=== PATIENT | female | born 1980 | race African-American/Black ===

== ENCOUNTER 2018-02-13 17:59 | Emergency (ER) | payer BC ==
[~2018-02-13] VITALS: Wt 68.0 kg
[~2018-02-13 17:59] MED LIST: ALPRAZOLAM XR0.5 MG PO; ATENOLOL25 MG PO; ATIVAN0.5 MG PO; BIAXIN500 MG PO; BIRTH CONTROL1 EAC1 PO; CIPROFLOXACIN500 MG PO; CLARITIN10 MG PO; FLAGYL500 MG PO; MEDROL DOSEPAK4 MG PO; PAXIL20 MG PO; PROVERA5 MG PO; VICODIN ES 7501 TAB PO; VISTARIL25 M1 PO; VISTARIL50 MG PO
[2018-02-13 18:33] LABS: BASO % 0.2 % (0.0-1.0); EOS % 0.1 % (1.0-4.0); HEMOGLOBIN 12.9 g/dl (12.0-16.0); LYMPH # 1.8 10*3/uL (1.3-4.4); LYMPH % 18.5 % (27.0-41.0); MEAN CORPUSCULAR HGB 30.4 pg (27.0-31.0); MEAN CORPUSCULAR HGB CONC 33.1 g/dl (33.0-37.0); MEAN PLATELET VOLUME 8.7 fl (9.6-12.3); MONO # 0.6 10*3/uL (0.1-1.0); NEUT # 7.1 10*3/uL (2.3-7.9); NEUT % 74.5 % (47.0-73.0); PLATELET COUNT AUTOMATED 355 10*3/uL (130-400); RED BLOOD COUNT 4.24 10*6/uL (4.10-5.10); RED CELL DISTRI WIDTH 13.2 % (0-14.5); WHITE BLOOD COUNT 9.5 10*3/uL (4.8-10.8)
[2018-02-13 18:48] LABS: ALBUMIN 3.4 gm/dl (3.1-4.5); ALKALINE PHOSPHATASE 74 U/L (45-117); BUN 10 mg/dl (7-24); CHLORIDE 104 mmol/L (98-107); CREATININE 1.02 mg/dL (0.55-1.02); LIPASE 335 U/L (73-393); POTASSIUM 3.7 mmol/L (3.5-5.1); SGOT/AST 19 IU/L (3-35); SGPT/ALT 23 U/L (12-78); SODIUM 139 mmol/L (136-145); TOTAL PROTEIN 6.8 gm/dL (6.4-8.2)
[2018-02-13] MEDS ORDERED: DICYCLOMINE HCL10 MG PO (19:27)
[2018-02-13 19:36] VITALS: BP 138/72
== END 2018-02-13 19:45 | disposition home or self-care (01) ==
LOC: ED 17:59
PROVIDERS: Physician Assistant
DX: R10.13 Epigastric pain (principal); R11.2 Nausea with vomiting, unspecified; R19.7 Diarrhea, unspecified; Z88.0 Allergy status to penicillin

== ENCOUNTER 2018-10-02 09:03 | Emergency (ER) | payer OTHER ==
[~2018-10-02] VITALS: Ht 165.1 cm; Wt 68.0 kg
[~2018-10-02 09:03] MED LIST changes: +DICYCLOMINE HCL10 MG PO
[2018-10-02 09:51] LABS: BASO % 0.2 % (0.0-1.0); HEMATOCRIT 42.5 % (37.0-47.0); HEMOGLOBIN 14.2 g/dl (12.0-16.0); LYMPH # 0.5 10*3/uL (1.3-4.4); LYMPH % 9.6 % (27.0-41.0); MEAN CELL VOLUME 91.6 fl (81.0-99.0); MEAN CORPUSCULAR HGB 30.6 pg (27.0-31.0); MEAN CORPUSCULAR HGB CONC 33.4 g/dl (33.0-37.0); MEAN PLATELET VOLUME 8.9 fl (9.6-12.3); MONO # 0.3 10*3/uL (0.1-1.0); MONO % 5.7 % (3.0-9.0); NEUT # 4.6 10*3/uL (2.3-7.9); NEUT % 83.9 % (47.0-73.0); PLATELET COUNT AUTOMATED 269 10*3/uL (130-400); RED BLOOD COUNT 4.64 10*6/uL (4.10-5.10); RED CELL DISTRI WIDTH 13.7 % (0-14.5); WHITE BLOOD COUNT 5.4 10*3/uL (4.8-10.8)
[2018-10-02 10:05] LABS: ALBUMIN 3.3 gm/dl (3.1-4.5); ALKALINE PHOSPHATASE 60 U/L (45-117); BUN 9 mg/dl (7-24); CHLORIDE 107 mmol/L (98-107); LIPASE 116 U/L (73-393); POTASSIUM 3.2 mmol/L (3.5-5.1); SGOT/AST 19 IU/L (3-35); SGPT/ALT 21 U/L (12-78); SODIUM 140 mmol/L (136-145); TOTAL PROTEIN 7.2 gm/dL (6.4-8.2)
[2018-10-02 10:31] LABS: BILIRUBIN 2+ (NEGATIVE); BLOOD TRACE-INTACT (NEGATIVE); CLARITY SL CLOUDY (CLEAR); COLOR YELLOW (YELLOW); GLUCOSE NEGATIVE (NEGATIVE); KETONE TRACE (NEGATIVE); LEUKO ESTERASE NEGATIVE (NEGATIVE); NITRITE NEGATIVE (NEGATIVE); SPECIFIC GRAVITY >= 1.030 (1.005-1.030)
[2018-10-02 10:44] LABS: BACTERIA TRACE
[2018-10-02 11:05] VITALS: BP 110/78
[2018-10-02] MEDS ORDERED: ZOFRAN4 MG PO (11:09)
== END 2018-10-02 11:43 | disposition home or self-care (01) ==
LOC: ED 09:03
PROVIDERS: Physician Assistant
DX: K52.9 Noninfective gastroenteritis and colitis, unspecified (principal); Z90.5 Acquired absence of kidney; Z88.0 Allergy status to penicillin; Z79.899 Other long term (current) drug therapy

== ENCOUNTER → 2018-10-21 | Outpatient (CLI) | payer OTHER ==
[~2018-10-21] MED LIST changes: +DELTASONE20 M1 PO; +ZOFRAN4 MG PO
[2018-10-21 13:32] LABS: ALBUMIN 3.6 gm/dl (3.1-4.5); ALKALINE PHOSPHATASE 66 U/L (45-117); BUN 6 mg/dl (7-24); CHLORIDE 103 mmol/L (98-107); CREATININE 1.07 mg/dL (0.55-1.02); POTASSIUM 3.5 mmol/L (3.5-5.1); SGOT/AST 23 IU/L (3-35); SGPT/ALT 21 U/L (12-78); SODIUM 139 mmol/L (136-145); TOTAL PROTEIN 7.5 gm/dL (6.4-8.2)
== END | disposition home or self-care (01) ==
LOC: LAB 12:10
PROVIDERS: Family Medicine
DX: I10 Essential (primary) hypertension (principal); E55.9 Vitamin D deficiency, unspecified; E87.6 Hypokalemia; R00.2 Palpitations

== ENCOUNTER 2018-12-05 14:05 | Emergency (ER) | payer OTHER ==
[~2018-12-05] VITALS: Ht 165.1 cm; Wt 68.0 kg
[~2018-12-05 14:05] MED LIST changes: -DELTASONE20 M1 PO
[2018-12-05] MEDS ORDERED: DELTASONE20 M1 PO (17:04)
[2018-12-05 17:13] VITALS: BP 128/96
== END 2018-12-05 17:16 | disposition home or self-care (01) ==
LOC: ED 14:05
DX: S39.012A Strain of muscle, fascia and tendon of lower back, initial encounter (principal); M62.830 Muscle spasm of back; Z88.0 Allergy status to penicillin; Z79.899 Other long term (current) drug therapy; Z90.5 Acquired absence of kidney; X50.0XXA Overexertion from strenuous movement or load, initial encounter; Y93.89 Activity, other specified; Y92.89 Other specified places as the place of occurrence of the external cause; Y99.8 Other external cause status

== ENCOUNTER → 2019-09-29 | Outpatient (CLI) | payer OTHER ==
[~2019-09-29] MED LIST changes: +DELTASONE20 M1 PO
[2019-09-29 11:21] LABS: HEMATOCRIT 42.8 % (37.0-47.0); MEAN CELL VOLUME 91.1 fl (81.0-99.0); MEAN CORPUSCULAR HGB 29.8 pg (27.0-31.0); MEAN CORPUSCULAR HGB CONC 32.7 g/dl (33.0-37.0); MEAN PLATELET VOLUME 8.4 fl (9.6-12.3); RED BLOOD COUNT 4.7 10*6/uL (4.10-5.10); RED CELL DISTRI WIDTH 13.9 % (0-14.5); WHITE BLOOD COUNT 4.1 10*3/uL (4.8-10.8)
[2019-09-29 11:39] LABS: ALBUMIN 3.6 gm/dl (3.1-4.5); ALKALINE PHOSPHATASE 69 U/L (45-117); BUN 10 mg/dl (7-24); CHLORIDE 107 mmol/L (98-107); CHOLESTEROL 236 mg/dL (<200); CREATININE 1.11 mg/dL (0.55-1.02); HDL CHOLESTEROL 86 mg/dl (40-60); POTASSIUM 4.4 mmol/L (3.5-5.1); SGOT/AST 30 IU/L (3-35); SGPT/ALT 31 U/L (12-78); SODIUM 139 mmol/L (136-145); TOTAL PROTEIN 7.2 gm/dL (6.4-8.2); TRIGLYCERIDES 629 mg/dl (<150)
[2019-09-29 12:39] LABS: VITAMIN D, 25-HYDROXY 25.6 ng/mL (30-100)
== END | disposition home or self-care (01) ==
LOC: LAB 10:56
PROVIDERS: Nurse Practitioner Family
DX: R53.83 Other fatigue (principal); R00.1 Bradycardia, unspecified; Z79.899 Other long term (current) drug therapy; Z85.528 Personal history of other malignant neoplasm of kidney

== ENCOUNTER → 2019-10-18 | Outpatient (CLI) | payer OTHER | END | disposition home or self-care (01) | LOC: CARD 06:50 | DX: Q21.1 Atrial septal defect (principal); R00.2 Palpitations; I77.819 Aortic ectasia, unspecified site ==

== ENCOUNTER 2020-03-17 17:11 | Inpatient (IN) | payer OTHER ==
[~2020-03-17] VITALS: Ht 165.1 cm; Wt 66.0 kg
[2020-03-17 17:14] VITALS: BP 129/87
[2020-03-17 18:16] LABS: BASO % 0.1 % (0.0-1.0); EOS % 0.1 % (1.0-4.0); LYMPH # 1.1 10*3/uL (1.3-4.4); LYMPH % 8.3 % (27.0-41.0); MEAN CORPUSCULAR HGB 30.7 pg (27.0-31.0); MEAN CORPUSCULAR HGB CONC 33.1 g/dl (33.0-37.0); MEAN PLATELET VOLUME 8.8 fl (9.6-12.3); MONO # 0.8 10*3/uL (0.1-1.0); MONO % 5.9 % (3.0-9.0); NEUT # 11.4 10*3/uL (2.3-7.9); NEUT % 85.2 % (47.0-73.0); PLATELET COUNT AUTOMATED 313 10*3/uL (130-400); RED BLOOD COUNT 3.87 10*6/uL (4.10-5.10); RED CELL DISTRI WIDTH 14.2 % (0-14.5); WHITE BLOOD COUNT 13.3 10*3/uL (4.8-10.8)
[2020-03-17 18:29] LABS: BILIRUBIN NEGATIVE (NEGATIVE); BLOOD TRACE-LYSED (NEGATIVE); CLARITY CLEAR (CLEAR); COLOR STRAW (YELLOW); GLUCOSE NEGATIVE (NEGATIVE); KETONE NEGATIVE (NEGATIVE); LEUKO ESTERASE NEGATIVE (NEGATIVE); NITRITE NEGATIVE (NEGATIVE); SPECIFIC GRAVITY 1.005 (1.005-1.030); UROBILINOGEN 0.2 E.U./dl (0.2-1.0)
[2020-03-17 18:34] LABS: EPITHELIAL CELLS 0-2
[2020-03-17 18:35] LABS: ALBUMIN 3.3 gm/dl (3.1-4.5); ALKALINE PHOSPHATASE 57 U/L (45-117); BUN 10 mg/dl (7-24); CHLORIDE 103 mmol/L (98-107); LIPASE 76 U/L (73-393); POTASSIUM 3.7 mmol/L (3.5-5.1); SGOT/AST 8 IU/L (3-35); SGPT/ALT 13 U/L (12-78); SODIUM 133 mmol/L (136-145); TOTAL PROTEIN 7.6 gm/dL (6.4-8.2)
--- NOTE | 2020-03-17 19:16 | NUR ---
NURSE TO NURSE REPORT GIVEN TO THIS RN.
--- NOTE | 2020-03-17 19:37 | NUR ---
PT REPORTS ABD PAIN 5/10.PT MEDICATED PER EMAR.FLUIDS CONTINUE TO INFUSE.
--- NOTE | 2020-03-17 21:18 | NUR ---
PT RESTING IN ROOM.UPDATED ON PLAN OF CARE.CALL GUZMAN IS WITHIN REACH.MEDICATIONS AND FLUID INFUSING PER EMAR.
[2020-03-17 22:11] VITALS: BP 115/69
--- NOTE | 2020-03-17 23:07 | NUR ---
PT AMBULATORY TO AND FROM RESTROOM.PT FLUIDS CONTINUE TO INFUSE.
--- NOTE | 2020-03-18 00:04 | NUR ---
PT AWAITING ADMISSION TO FLOOR.FLUIDS OF NS AND FLAGYL CONTINUE TO INFUSE.
[2020-03-18 00:30] VITALS: BP 112/72
--- NOTE | 2020-03-18 00:30 | NUR ---
A 39, admitted to 5E, under the services of JOHN Ponce MD with a diagnosis of DIVERTICULITIS SMALL INTESTINE, SEPSIS. Chief complaint is ABDOMINAL PAIN. Patient arrived via stretcher from ER. Monitor applied. Initial assessment completed. Vital signs taken and recorded. JOHN PONCE MD notified of admission to the unit. Orders received. See assessment for past medical history, medications and allergies. Patient and/or family oriented to unit. [address] visitation policy reviewed. Clothing/patient valuable form completed. KUMAR OLIVA
--- NOTE | 2020-03-18 00:40 | NUR ---
ASSESSMENT COMPLETED ON PATIENT. VITAL SIGNS TAKEN AND RECORDED, VITALS STABLE. PATIENT COMPLAINING OF LOWER RIGHT QUADRANT PAIN RATED 3/10. PATIENT STATED IT DOES NOT HURT UNTIL SHE MOVES OR TAKES A DEEP BREATH. LUNG SOUNDS ARE DIMINISHED AND SOMEWHAT SHALLOW DUE TO PAIN WITH DEEP INSPIRATION IN LOWER RIGHT QUADRANT. PATIENT IS PLEASANT, COOPERATIVE, SPEECH IS CLEAR. ABLE TO AMBULATE BY SELF. NO EDEMA IS NOTED. NO WOUNDS WERE FOUND DURING ASSESSMENT. IV IS IN RIGHT ANTECUBITAL WITH NORMAL SALINE INFUSING. PATIENT STATED SHE HAS NOT HAD AN APPETITE LATELY BUT IS THIRSTY. HOME MEDS REVIEWED. PATIENT STATED SHE HAS A HISTORY OF ANXIETY BUT THAT SHE IS NOT FEELING ANXIOUS AT THE MOMENT. PATIENT ALSO STATED THAT THE PHENERGAN SHE RECIEVED IN ER HELPED HER A LOT AND THAT AFTER RECIEVING IT SHE SLEPT "REALLY GOOD" FOR THE FIRST TIME IN THE LAST COUPLE OF DAYS. PATIENT HAD FLU SHOT THIS PAST SEASON. NO COUGHING AT THIS TIME. LAST BOWEL MOVEMENT ON 03-17-2020. BOWEL SOUNDS HEARD IN ALL FOUR QUADRANTS. HEART RATE REGULAR, S1S2 AUSCULTATED. PATIENT HAS NO COMPLAINTS AT THIS TIME. ORIENTED TO ROOM AND UPDATED ON PLAN OF CARE. WILL CONTINUE TO MONITOR.
--- NOTE | 2020-03-18 00:57 | NUR ---
CALLED DR HAMEED FOR ADMISSION ORDERS. ORDERS ARE: NORMAL SALINE @ 100 ML/HR FLAGYL 500 MG IV TID CIPRO 400 MG IV BID NPO DIET DILAUDID 0.25 MG Q8H PRN WILL PUT ORDERS IN. ALSO NOTIFIED HER THAT MED REC IS IN. SHE STATED NOT TO CONTINUE ANYTHING SINCE PATIENT IS NPO.
[2020-03-18] MEDS ORDERED: ZOLOFT100 MG PO (01:16)
[2020-03-18] MEDS ORDERED: BUSPAR5 MG PO (01:16)
--- NOTE | 2020-03-18 01:21 | NUR ---
PATIENT COMPLAINING OF NAUSEA. DR HAMEED MADE AWARE AND ORDERS GIVEN FOR ZOFRAN 8MG IV Q6H PRN.
--- NOTE | 2020-03-18 01:24 | NUR ---
LACTIC ACID RECIEVED 2.4. CALLED TO NURSE LINUS FROM LAB. PER DR DALTON'S ORDERS, WILL NOT NOTIFY HIM SINCE LACTIC ACID IS TRENDING DOWN.
--- NOTE | 2020-03-18 01:45 | NUR ---
ZOFRAN GIVEN PER PATIENT REQUEST FOR COMPLAINTS OF NAUSEA. WILL ASSESS EFFECTIVENESS.
--- NOTE | 2020-03-18 02:40 | NUR ---
ZOFRAN EFFECTIVE PER PATIENT. WILL CONTINUE TO MONITOR.
--- NOTE | 2020-03-18 05:36 | NUR ---
DILAUDID GIVEN PER PATIENT REQUEST FOR COMPLAINTS OF ABDOMINAL PAIN RATED 8/10. WILL ASSESS EFFECTIVENESS.
--- NOTE | 2020-03-18 06:30 | NUR ---
DILAUDID EFFECTIVE. PATIENT RESTING QUIETLY IN BED ON LEFT SIDE. NORMAL SALINE RUNNING AT 100 ML/HR. CALL LIGHT WITHIN REACH. WILL CONTINUE TO MONITOR.
[2020-03-18 08:00] VITALS: BP 104/70
--- NOTE | 2020-03-18 08:45 | NUR ---
DR. HAMEED IN TO SEE PATIENT RE: PLAN OF CARE, ORDERED CORONAVIRUS TEST AND MOVE TO [facility] NEGATIVE PRESSURE ROOM, ALSO PO TYLENOL FOR TEMP. 103.8 TEMPORAL, 100.[address] HAMEED ADVISED TO CHECK WITH DR. SULTANA RE: TRANSFER TO [facility]. SPOKE WITH RESIDENT WORKING WITH DR. SULTANA, DR. HASSAN, WHO ALSO ADVISED TRANSFER TO [facility]. NURSING INTAKE ASSESSOR NOTIFIED, AWAITING BED AVAILABILITY ON [facility]. NASOPHARYNGEAL SPECIMEN WILL BE OBTAINED PRIOR TO TRANSFER.
--- NOTE | 2020-03-18 09:01 | NUR ---
PHYSICAL THERAPY Nursing screen received. Patient admitted for abdominal pain. Recommend skilled PT evaluation if decline in functional status presents. Thank you. Brenda Quintanilla,PT,DPT
--- NOTE | 2020-03-18 10:22 | NUR ---
MEDICATED WITH PRN PO TYLENOL FOR TEMP. 100.0 ORALLY/103.8 TEMPORAL.
--- NOTE | 2020-03-18 11:20 | NUR ---
REPORT CALLED TO RECEIVING NURSE ON [facility]. PREPARING TO TRANSFER TO ROOM 409-1
--- NOTE | 2020-03-18 11:25 | NUR ---
PATIENT TRANSFERRED TO [facility] AT THIS TIME.
[2020-03-18 12:00] VITALS: BP 118/72
--- NOTE | 2020-03-18 12:00 | NUR ---
PT ARRIVED TO FLOOR. RESPS EASY AND NON LABORED. NO IMMEDIATE S/S OF DISTRESS. VSS. WHITE BOARD UPDATED. POC DISCUSSED W PT. CALL LIGHT WITHIN REACH. DENIES SOB. STATES ABD PAIN-RLQ- IS NOT TO BAD AT THIS PRESENT TIME. NO WOUNDS. ROOM AIR. BS X4, HYPERACTIVE, N/D, TENDER, BM 03/17, WILL CONTINUE TO MONITOR
--- NOTE | 2020-03-18 12:17 | NUR ---
DR NAYLOR ANSWERING SERVIVCE NOTIFIED OF NEW CONSULT.
--- NOTE | 2020-03-18 13:17 | NUR ---
[employer] Cryptologic Manager in to talk to patient. Patient states lives at HOME with ANGELY AND HIS NEPHEW. There are [address] steps in the home. Physician: RAJWINDER [facility]acy: [facility] Home health services: NONE Patient's level of ADLs: MAX ASSIST Patient has working utilities: YES DME: NONE Follow-up physician's appointment after d/c: PREFERS TO MAKE OWN WHEN DISCHARGED Does patient want to access PORTAL?: NO Discharge plan PT LIVES AT HOME WITH HER BOYFRIEND AND IS INDEPENDENT IN HER CARE. DENIES SHE WILL HAVE ANY NEEDS ON DISCHARGE. PLAN IS TO RETURN HOME WHEN MEDICALLY STABLE. WILL CONTINUE TO FOLLOW. STATES SHE WILL HAVE A RIDE HOME.. LILIBETH CORONADO
[2020-03-18 16:00] VITALS: BP 108/72
--- NOTE | 2020-03-18 16:49 | NUR ---
PT C/O NAUSEA. MEDICATED PER ORDER. WILL MONITOR FOR RELIEF. VOICES NO OTHER CONCERNS AT THIS TIME. RESPS EASY AND NON LABORED. NO S/S OF DISTRESS. CALL LIGHT WITHIN REACH
--- NOTE | 2020-03-18 17:05 | NUR ---
ZOFRAN EFFECTIVE PER PT
--- NOTE | 2020-03-18 19:30 | NUR ---
PATIENT RESTING IN BED. ONLY COMPLAINT IS RLQ PAIN, BUT PATIENT STATES IT IS IMPROVING AND DENIES THE NEED FOR ANYTHING FOR IT AT THIS TIME. ASSESSMENT COMPLETE. RESPS EASY AND REGULAR. DENIES N/V/D. LAST BM 03/17. IVF INFUSING @ 100 ML/HR. IV SITE IN RAC ASYMPTOMATIC. CALL LIGHT IS WITHIN REACH. WILL CONTINUE TO MONITOR.
[2020-03-18 20:00] VITALS: BP 121/71
[2020-03-19] VITALS: BP 108/74
--- NOTE | 2020-03-19 05:30 | NUR ---
PT MEDICATED WITH PRN TYLENOL FOR C/O HEADACHE. WILL MONITOR FOR EFFECTIVENESS.
--- NOTE | 2020-03-19 06:20 | NUR ---
PT REPORTS RELIEF FROM HER HEADACHE. PRN TYLENOL EFFECTIVE.
[2020-03-19 06:37] LABS: BASO % 0.1 % (0.0-1.0); HEMATOCRIT 34.1 % (37.0-47.0); LYMPH # 1.1 10*3/uL (1.3-4.4); MEAN CORPUSCULAR HGB 30.6 pg (27.0-31.0); MEAN CORPUSCULAR HGB CONC 32.3 g/dl (33.0-37.0); MEAN PLATELET VOLUME 8.9 fl (9.6-12.3); MONO # 0.6 10*3/uL (0.1-1.0); MONO % 8.3 % (3.0-9.0); NEUT # 5.9 10*3/uL (2.3-7.9); NEUT % 76.8 % (47.0-73.0); PLATELET COUNT AUTOMATED 333 10*3/uL (130-400); RED BLOOD COUNT 3.59 10*6/uL (4.10-5.10); RED CELL DISTRI WIDTH 13.7 % (0-14.5); WHITE BLOOD COUNT 7.7 10*3/uL (4.8-10.8)
[2020-03-19 07:00] LABS: ALBUMIN 2.5 gm/dl (3.1-4.5); ALKALINE PHOSPHATASE 58 U/L (45-117); BUN 5 mg/dl (7-24); CHLORIDE 109 mmol/L (98-107); CREATININE 0.76 mg/dL (0.55-1.02); POTASSIUM 3.6 mmol/L (3.5-5.1); SGOT/AST 10 IU/L (3-35); SGPT/ALT 11 U/L (12-78); SODIUM 139 mmol/L (136-145); TOTAL PROTEIN 6.6 gm/dL (6.4-8.2)
[2020-03-19 08:00] VITALS: BP 112/76
--- NOTE | 2020-03-19 09:30 | NUR ---
Patient resting quietly with no c/o discomfort. Respirations easy and regular. Vital signs stable. No overt distress. RUPERTO TAYLOR
--- NOTE | 2020-03-19 11:20 | NUR ---
PT CONTINUES TO STATE SHE WILL HAVE NO NEEDS ON DISCHARGE. PLANS TO RETURN HOME WHEN MEDICALLY STABLE. WILL CONTINUE TO FOLLOW.
[2020-03-19 12:00] VITALS: BP 114/74
[2020-03-19] MEDS ORDERED: FLAGYL500 MG PO (14:01)
[2020-03-19] MEDS ORDERED: CIPRO500 MG PO (14:01)
--- NOTE | 2020-03-19 15:06 | NUR ---
NOTIFIED MEENA RICHARDSON ON 4 THAT COVID TEST IS NEGATIVE AND CAN COME OUT OF ISOLATION PER DR SULTANA
--- NOTE | 2020-03-19 16:35 | NUR ---
LEAVING IN CARE OF SELF, AMBULATORY.
== END 2020-03-19 16:35 | disposition home or self-care (01) | DRG 872 ==
LOC: ED 17:11 → 5E 23:56 → EDHOLD 23:56 → 5E 03-18 00:26 → 4E 03-18 12:06
PROVIDERS: Nurse Practitioner Family; ADMIT Internal Medicine
DX: A41.9 Sepsis, unspecified organism (principal); K57.12 Diverticulitis of small intestine without perforation or abscess without bleeding; E87.1 Hypo-osmolality and hyponatremia; D64.9 Anemia, unspecified; R79.82 Elevated C-reactive protein (CRP); Z20.828 Contact with and (suspected) exposure to other viral communicable diseases; Z88.0 Allergy status to penicillin; Z79.899 Other long term (current) drug therapy

== ENCOUNTER → 2020-03-29 | Outpatient (CLI) | payer OTHER ==
[~2020-03-29] MED LIST changes: +BUSPAR5 MG PO; +CIPRO500 MG PO; +ZOLOFT100 MG PO
[2020-03-29 08:52] LABS: HEMATOCRIT 36.4 % (37.0-47.0); MEAN CELL VOLUME 93.1 fl (81.0-99.0); MEAN CORPUSCULAR HGB 30.4 pg (27.0-31.0); MEAN CORPUSCULAR HGB CONC 32.7 g/dl (33.0-37.0); MEAN PLATELET VOLUME 8.6 fl (9.6-12.3); RED BLOOD COUNT 3.91 10*6/uL (4.10-5.10); RED CELL DISTRI WIDTH 14.2 % (0-14.5); WHITE BLOOD COUNT 4.7 10*3/uL (4.8-10.8)
[2020-03-29 09:15] LABS: ALKALINE PHOSPHATASE 55 U/L (45-117); BUN 12 mg/dl (7-24); CHLORIDE 111 mmol/L (98-107); CREATININE 1.19 mg/dL (0.55-1.02); SGOT/AST 30 IU/L (3-35); SGPT/ALT 35 U/L (12-78); SODIUM 142 mmol/L (136-145); TOTAL PROTEIN 6.5 gm/dL (6.4-8.2)
[2020-03-29 09:24] LABS: POTASSIUM 4.2 mmol/L (3.5-5.1)
== END | disposition home or self-care (01) ==
LOC: LAB 08:12
PROVIDERS: Family Medicine
DX: K57.92 Diverticulitis of intestine, part unspecified, without perforation or abscess without bleeding (principal)

== ENCOUNTER → 2020-04-19 | Outpatient (CLI) | payer OTHER | END | disposition home or self-care (01) | LOC: COVID19 00:10 | DX: Z01.818 Encounter for other preprocedural examination (principal); Z11.59 Encounter for screening for other viral diseases ==

== ENCOUNTER → 2020-04-25 | Day surgery (SDC) | payer OTHER ==
[~2020-04-25] VITALS: Ht 165.1 cm; Wt 65.8 kg
[2020-04-25 08:45] VITALS: BP 119/84
[2020-04-25 10:11] VITALS: BP 100/69
[2020-04-25 10:26] VITALS: BP 120/87
[2020-04-25 10:41] VITALS: BP 109/82
== END | disposition home or self-care (01) ==
LOC: SDC 04-22 13:15
DX: Z12.11 Encounter for screening for malignant neoplasm of colon (principal); D12.4 Benign neoplasm of descending colon; K57.50 Diverticulosis of both small and large intestine without perforation or abscess without bleeding; N18.9 Chronic kidney disease, unspecified; F41.9 Anxiety disorder, unspecified; Z98.890 Other specified postprocedural states; Z79.899 Other long term (current) drug therapy; Z83.3 Family history of diabetes mellitus; Z82.49 Family history of ischemic heart disease and other diseases of the circulatory system

== ENCOUNTER → 2021-01-02 | Outpatient (CLI) | payer OTHER ==
[2021-01-02 16:47] LABS: HEMATOCRIT 38.6 % (37.0-47.0); MEAN CELL VOLUME 93.7 fl (81.0-99.0); MEAN CORPUSCULAR HGB 30.6 pg (27.0-31.0); MEAN CORPUSCULAR HGB CONC 32.6 g/dl (33.0-37.0); MEAN PLATELET VOLUME 8.7 fl (9.6-12.3); RED BLOOD COUNT 4.12 10*6/uL (4.10-5.10); RED CELL DISTRI WIDTH 13.6 % (0-14.5); WHITE BLOOD COUNT 7.1 10*3/uL (4.8-10.8)
[2021-01-02 17:21] LABS: ALBUMIN 3.4 gm/dl (3.1-4.5); ALKALINE PHOSPHATASE 62 U/L (45-117); BUN 9 mg/dl (7-24); CHLORIDE 102 mmol/L (98-107); CHOLESTEROL 284 mg/dL (<200); CREATININE 1.02 mg/dL (0.55-1.02); HDL CHOLESTEROL 112 mg/dl (40-60); LDL CHOLESTEROL 123 mg/dL (9-159); POTASSIUM 3.5 mmol/L (3.5-5.1); SGOT/AST 14 IU/L (3-35); SGPT/ALT 19 U/L (12-78); SODIUM 135 mmol/L (136-145); TOTAL PROTEIN 7.2 gm/dL (6.4-8.2); TRIGLYCERIDES 243 mg/dl (<150); VLDL CHOLESTEROL 49 mg/dL (6-40)
[2021-01-03 08:08] LABS: FOLLICLE STIMULATING HORMONE 7.5 mIU/mL (.)
== END | disposition home or self-care (01) ==
LOC: LAB 16:08
PROVIDERS: ATTEND Nurse Practitioner Family
DX: Z13.220 Encounter for screening for lipoid disorders (principal); N94.6 Dysmenorrhea, unspecified; R53.83 Other fatigue

== ENCOUNTER 2023-09-18 07:00 | Emergency (ER) | payer BC ==
[~2023-09-18] VITALS: Ht 165.1 cm; Wt 63.5 kg
[2023-09-18 07:37] VITALS: BP 100/74
[2023-09-18 09:28] LABS: BILIRUBIN Negative (Negative); BLOOD Negative (Negative); CLARITY Clear (Clear); COLOR Yellow (Yellow); GLUCOSE Negative (Negative); KETONE Negative (Negative); LEUKO ESTERASE Negative (Negative); NITRITE Negative (Negative); PH 6.5 (4.5-8.0); SPECIFIC GRAVITY <= 1.005 (1.001-1.030); UROBILINOGEN 0.2 E.U./dl (0.0-1.0)
[2023-09-18 10:14] LABS: BACTERIA 2+; WBC 0-2 wbc/hpf (0-5)
[2023-09-18] MEDS ORDERED: LEVOFLOXACIN250 M2 PO (10:20)
== END 2023-09-18 10:31 | disposition home or self-care (01) ==
LOC: ED 07:00
PROVIDERS: Student in an Organized Health Care Education/Training Program
DX: N39.0 Urinary tract infection, site not specified (principal); B34.9 Viral infection, unspecified; F41.9 Anxiety disorder, unspecified; Z88.0 Allergy status to penicillin; Z98.890 Other specified postprocedural states; Z87.891 Personal history of nicotine dependence; Z20.822 Contact with and (suspected) exposure to COVID-19

== ENCOUNTER → 2023-11-15 | Outpatient (CLI) | payer BC ==
[~2023-11-15] MED LIST changes: +LEVOFLOXACIN250 M2 PO
== END | disposition home or self-care (01) ==
LOC: MAMMO 11-09 15:00
PROVIDERS: ATTEND Physician Assistant
DX: Z12.31 Encounter for screening mammogram for malignant neoplasm of breast (principal)

== ENCOUNTER → 2024-07-24 | Outpatient (CLI) | payer BC ==
[~2024-07-24] MED LIST changes: +'XANAX1 MG PO; +LEVOFLOXACIN750 M2 PO; +VITAMIN D3125 MC1 PO
== END | disposition home or self-care (01) ==
LOC: CARD 07-20 13:00
PROVIDERS: ATTEND Physician Assistant
DX: I37.1 Nonrheumatic pulmonary valve insufficiency (principal); I51.7 Cardiomegaly; I77.810 Thoracic aortic ectasia

== ENCOUNTER 2024-09-09 03:00 | Emergency (ER) | payer BC ==
[~2024-09-09] VITALS: Ht 165.1 cm; Wt 61.2 kg
[2024-09-09 03:08] VITALS: BP 154/100
[2024-09-09] MEDS ORDERED: DIAZEPAM 2 MG TAB PO ONE (03:20)
[2024-09-09 03:45] LABS: BASO % 0.5 % (0.0-1.0); EOS # 0.1 10*3/uL (0.0-0.4); EOS % 2.7 % (1.0-4.0); HEMATOCRIT 34.2 % (37.0-47.0); MEAN CELL VOLUME 96.6 fl (81.0-99.0); MEAN CORPUSCULAR HGB 33.1 pg (27.0-31.0); MEAN CORPUSCULAR HGB CONC 34.2 g/dl (33.0-37.0); MEAN PLATELET VOLUME 8.7 fl (9.6-12.3); MONO # 0.4 10*3/uL (0.1-1.0); MONO % 9.2 % (3.0-9.0); NEUT # 2.6 10*3/uL (2.3-7.9); NEUT % 64.5 % (47.0-73.0); PLATELET COUNT AUTOMATED 246 10*3/uL (130-400); RED BLOOD COUNT 3.54 10*6/uL (4.10-5.10)
[2024-09-09 04:19] LABS: CHLORIDE 101 mmol/L (98-107); POTASSIUM 2.6 mmol/L (3.4-5.1)
[2024-09-09 04:21] LABS: BUN < 5 mg/dl (9-23)
[2024-09-09] MEDS ORDERED: POTASSIUM CHLORIDE 20 MEQ TAB PO ONE (04:30)
[2024-09-09] MEDS ORDERED: OMNICEF300 MG PO (04:34)
== END 2024-09-09 04:51 | disposition home or self-care (01) ==
LOC: ED 03:00
PROVIDERS: Internal Medicine
DX: E87.6 Hypokalemia (principal); F41.9 Anxiety disorder, unspecified; D64.9 Anemia, unspecified; H66.91 Otitis media, unspecified, right ear; R07.89 Other chest pain; Z88.0 Allergy status to penicillin; Z98.890 Other specified postprocedural states; Z87.891 Personal history of nicotine dependence

== ENCOUNTER → 2024-12-15 | Outpatient (CLI) | payer BC ==
[~2024-12-15] MED LIST changes: +OMNICEF300 MG PO
[2024-12-15 10:04] LABS: HEMATOCRIT 34.3 % (37.0-47.0); MEAN CELL VOLUME 102.4 fl (81.0-99.0); MEAN CORPUSCULAR HGB 32.8 pg (27.0-31.0); MEAN CORPUSCULAR HGB CONC 32.1 g/dl (33.0-37.0); MEAN PLATELET VOLUME 8.8 fl (9.6-12.3); RED BLOOD COUNT 3.35 10*6/uL (4.10-5.10); RED CELL DISTRI WIDTH 14.4 % (0-14.5); WHITE BLOOD COUNT 4.5 10*3/uL (4.8-10.8)
[2024-12-15 10:35] LABS: ALKALINE PHOSPHATASE 119 U/L (46-116); BUN 12 mg/dl (9-23); CHLORIDE 101 mmol/L (98-107); CHOLESTEROL 260 mg/dL (<200); LDL CHOLESTEROL 119 mg/dL (9-159); POTASSIUM 4.2 mmol/L (3.4-5.1); SGPT/ALT 46 U/L (5-49); TOTAL PROTEIN 6.5 gm/dL (6.0-8.0); TRIGLYCERIDES 108 mg/dl (<150)
== END | disposition home or self-care (01) ==
LOC: LAB 09:32
PROVIDERS: Physician Assistant; ATTEND Physician Assistant
DX: C64.2 Malignant neoplasm of left kidney, except renal pelvis (principal); D36.9 Benign neoplasm, unspecified site; I77.810 Thoracic aortic ectasia

== ENCOUNTER 2025-04-15 10:13 | Emergency (ER) | payer BC ==
[~2025-04-15] VITALS: Ht 165.1 cm; Wt 63.5 kg
[2025-04-15 10:43] VITALS: BP 146/96
[2025-04-15] MEDS ORDERED: XANAX1 MG PO (10:46)
[2025-04-15] MEDS ORDERED: BUSPIRONE10 MG PO (10:47)
== END 2025-04-15 12:58 | disposition home or self-care (01) ==
LOC: ED 10:13
DX: S82.52XA Displaced fracture of medial malleolus of left tibia, initial encounter for closed fracture (principal); Z88.0 Allergy status to penicillin; Z79.899 Other long term (current) drug therapy; Z90.5 Acquired absence of kidney; X50.0XXA Overexertion from strenuous movement or load, initial encounter; Y93.89 Activity, other specified; Y92.89 Other specified places as the place of occurrence of the external cause; Y99.8 Other external cause status

== ENCOUNTER 2025-04-26 08:00 | Emergency (ER) | payer BC ==
[~2025-04-26] VITALS: Ht 165.1 cm; Wt 63.5 kg
[~2025-04-26 08:00] MED LIST changes: +BUSPIRONE10 MG PO; +XANAX1 MG PO
[2025-04-26 08:11] VITALS: BP 109/81
== END 2025-04-26 09:15 | disposition home or self-care (01) ==
LOC: ED 08:00
DX: M25.572 Pain in left ankle and joints of left foot (principal); R22.42 Localized swelling, mass and lump, left lower limb; Z88.0 Allergy status to penicillin; Z79.899 Other long term (current) drug therapy; Z87.891 Personal history of nicotine dependence; X50.0XXA Overexertion from strenuous movement or load, initial encounter; Y93.89 Activity, other specified; Y92.89 Other specified places as the place of occurrence of the external cause; Y99.8 Other external cause status

== ENCOUNTER 2025-05-23 14:43 | Emergency (ER) | payer BC ==
[~2025-05-23] VITALS: Wt 63.5 kg
[2025-05-23 14:57] VITALS: BP 142/98
[2025-05-23] MEDS ORDERED: Acetaminophen/Oxycodone 5 MG/325 MG TABLET PO ONE (15:20)
[2025-05-23] MEDS ORDERED: PERCOCET 5-3251 EACH PO ×2 (15:26→15:27)
[2025-05-28] MEDS ORDERED: CIPRO500 MG PO (11:24)
[2025-05-28] MEDS ORDERED: METRONIDAZOLE500 M1 PO (11:33)
[2025-05-28] MEDS ORDERED: KLOR-CON 1010 ME1 PO (11:34)
== END 2025-05-23 15:29 | disposition home or self-care (01) ==
LOC: ED 14:43
DX: S93.402A Sprain of unspecified ligament of left ankle, initial encounter (principal); F41.9 Anxiety disorder, unspecified; Z88.0 Allergy status to penicillin; Z87.891 Personal history of nicotine dependence; X58.XXXA Exposure to other specified factors, initial encounter; Y93.89 Activity, other specified; Y92.89 Other specified places as the place of occurrence of the external cause; Y99.8 Other external cause status